=== PATIENT | female | born 1945 | race Caucasian/White ===

== ENCOUNTER 2020-11-28 18:20 | Emergency (ER) | payer MEDICARE, OTHER ==
--- NOTE | 2020-11-28 18:40 | EDM.PDOC ---
ED HPI GENERAL MEDICAL PROBLEM - General Chief Complaint: General Stated Complaint: LEFT FACE SWOLLEN Time Seen by Provider: 11/28/20 18:33 Source of Information: Reports: Patient History Limitations: Reports: No Limitations - History of Present Illness INITIAL COMMENTS - FREE TEXT/NARRATIVE: Bridgette is a 75-year-old female presenting to the ED for evaluation of swelling to the left side of her face. The swelling started on the left lower lip and now it spread to the left cheek and left upper lip. Patient states that started around 1300 hrs. today. She does report that after eating breakfast she had an unsettled stomach so she took an IBgard tablet. She reports that she is on no medications on a regular basis including SUNITHA inhibitors. She does state that she had 1 previous episode like this in the past when she went to sleep and woke up and her whole face was swollen. She denies any difficulty breathing or swallowing. She denies any headache, fever or chills, dental problems, nausea or vomiting, or chest pain. - Related Data Allergies Allergy/AdvReac Type Severity Reaction Status Date / Time Sulfa (Sulfonamide Allergy Rash Verified 11/28/20 18:41 Antibiotics) Home Meds: Home Meds Ibuprofen 1 cap PO Q6H PRN 11/09/16 [History] Past Medical History Musculoskeletal History: Reports: Other (See Below) Other Musculoskeletal History: right knee pain. right shoulder pain ED ROS GENERAL - Review of Systems Review Of Systems: See Below Constitutional: Reports: No Symptoms HEENT: Reports: Other (Left upper and lower lip swelling extending into the left cheek and perioral area) Respiratory: Reports: No Symptoms Cardiovascular: Reports: No Symptoms Endocrine: Reports: No Symptoms GI/Abdominal: Reports: No Symptoms : Reports: No Symptoms Musculoskeletal: Reports: No Symptoms Skin: Reports: No Symptoms Neurological: Reports: No Symptoms Psychiatric: Reports: No Symptoms Hematologic/Lymphatic: Reports: No Symptoms Immunologic: Reports: No Symptoms ED EXAM, GENERAL - Physical Exam Exam: See Below Exam Limited By: No Limitations General Appearance: Alert, No Apparent Distress, Anxious Eye Exam: Bilateral Eye: EOMI, PERRL Nose: Normal Inspection Throat/Mouth: Normal Gums (No evidence for dental caries, dental infection, or gingivitis. No lesions on the buccal mucosa.), Normal Oropharynx, Normal Voice, No Airway Compromise, Other (Edema and induration of the left side of the mouth including the lips extending into the cheek. The area is tender to palpation and firm to the touch.) Head: Atraumatic, Facial Swelling (Swelling of the left perioral region extending to the cheek), Facial Tenderness (Tenderness over the area of edema), Other (Nontender over the left parotid and submandibular glands) Neck: Normal Inspection, Supple, Non-Tender, Full Range of Motion. No: Lymphadenopathy (R), Lymphadenopathy (L) Respiratory/Chest: No Respiratory Distress, Lungs Clear, Normal Breath Sounds. No: Wheezing, Stridor Cardiovascular: Normal Peripheral Pulses, Regular Rate, Rhythm, No Murmur Peripheral Pulses: 2+: Radial (L), Radial (R) Neurological: Alert, Oriented, Normal Cognition, No Motor/Sensory Deficits Skin Exam: Warm, Dry. No: Erythema, Increased Warmth Lymphatic: No Adenopathy Course - Vital Signs Last Recorded V/S: Last Vital Signs Temp 36.4 C 11/28/20 18:45 Pulse 74 11/28/20 20:15 Resp 16 11/28/20 18:45 BP 170/90 H 11/28/20 20:15 Pulse Ox 97 11/28/20 18:45 - Orders/Labs/Meds Labs: Laboratory Tests 11/28/20 11/28/20 Range/Units 18:59 18:59 WBC 7.1 (4.5-11.0) K/uL RBC 4.39 (3.30-5.50) M/uL Hgb 13.1 (12.0-15.0) g/dL Hct 39.8 (36.0-48.0) % MCV 91 (80-98) fL MCH 30 (27-31) pg MCHC 33 (32-36) % Plt Count 244 (150-400) K/uL Neut % (Auto) 49.3 (36-66) % Lymph % (Auto) 37.7 (24-44) % [place] % (Auto) 10.5 H (2-6) % Eos % (Auto) 1.8 L (2-4) % Baso % (Auto) 0.7 (0-1) % ESR 16 (0-25) mm/hr C-Reactive Protein < 0.05 (0.0-0.3) mg/dL Meds: Medications Discontinued Medications Generic Name Dose Route Start Last Admin Trade Name Boaz PRN Reason Stop Dose Admin Dexamethasone 6 mg 11/28/20 18:43 11/28/20 18:48 Dexamethasone 4 Mg/Ml Sdv IM 11/28/20 18:44 6 mg ONETIME ONE Administration - Re-Assessments/Exams Free Text/Narrative Re-Assessment/Exam: 11/28/20 21:08 reviewed showing a normal CBC, CRP, and ESR. The patient was given Decadron 6 mg IM and has had continued improvement after being observed for 2 hours. At this time she is suitable for discharge. This is likely mediated by bradykinins, however, it does seem to be steroid sensitive so we will put her on a prednisone 10-day taper. This has been sent out to the [facility] machine. Departure - Departure Time of Disposition: 21:09 Disposition: Home, Self-Care 01 Clinical Impression: Idiopathic angioedema Qualifiers: Encounter type: initial encounter Qualified Code(s): T78.3XXA - Angioneurotic edema, initial encounter - Discharge Information Instructions: Angioedema Referrals: Kameron Dominguez MD [Primary Care Provider] - Forms: ED Department Discharge Care Plan Goals: I am glad to see that your edema is improving with the dexamethasone. I am going to put you on a 10-day taper course of prednisone which has been sent out to the [facility] machine. If recurrence of the swelling occurs please return immediately to the ED for reevaluation. Sepsis Event Note (ED) - Focused Exam Vital Signs: Vital Signs Temp Pulse Resp BP Pulse Ox 11/28/20 20:15 74 170/90 H 11/28/20 18:45 36.4 C 75 16 172/55 H 97 11/28/20 18:36 36.4 C 75 16 172/55 H 97 - Problem List & Annotations (1) Idiopathic angioedema SNOMED Code(s): 017357333 Code(s): T78.3XXA - ANGIONEUROTIC EDEMA, INITIAL ENCOUNTER Status: Acute Priority: High Current Visit: Yes Qualifiers: Encounter type: initial encounter Qualified Code(s): T78.3XXA - Angioneurotic edema, initial encounter - Problem List Review Problem List Initiated/Reviewed/Updated: Yes
[2020-11-28] MEDS ORDERED: Dexamethasone 4 MG/ML SDV IM ONE (18:43)
[2020-11-28 21:20] VITALS: BP 163/76; PULSE 81
== END 2020-11-28 21:23 | disposition home or self-care (01) ==
LOC: JP.ED 18:20
DX: T78.3XXA Angioneurotic edema, initial encounter (principal); Z88.2 Allergy status to sulfonamides
CPT/HCPCS: 36415; 85025; 85651; 86140; 96372; 99283; J1100